=== PATIENT | male | born 1995 | race Caucasian/White ===

== ENCOUNTER 2022-04-17 03:59 | Emergency (ER) | payer OTHER ==
[~2022-04-17] VITALS: Ht 175.3 cm; Wt 81.6 kg
== END 2022-04-17 06:05 | disposition left against medical advice (07) ==
LOC: ER 03:59
DX: S00.93XA Contusion of unspecified part of head, initial encounter (principal); S16.1XXA Strain of muscle, fascia and tendon at neck level, initial encounter; W18.39XA Other fall on same level, initial encounter; Y93.89 Activity, other specified; Y92.832 Beach as the place of occurrence of the external cause; Y99.9 Unspecified external cause status